=== PATIENT | male | born 1990 | race Caucasian/White ===

== ENCOUNTER → 2024-08-18 | Outpatient (CLI) | payer OTHER, SELFPAY ==
[2024-08-18 12:21] LABS: Absolute Lymphocyte Count 1.77 X10^3/uL (0.83-4.51); Absolute Neutrophil Count 4.7 X10^3/uL (2.0-7.7); Basophil# 0.06 X10^3/uL; Basophil% 0.8 % (0-1); Eosinophil# 0.27 X10^3/uL; Eosinophils% 3.7 % (0-5); Hematocrit 44.8 % (40-54); Hemoglobin 15.5 g/dL (13.0-16.5); Lymphocyte # 1.77 X10^3/ul (0.83-4.51); Lymphocyte % 24.2 % (19-41); Mean Corp Hgb Conc 34.6 g/dL (32-36); Mean Corpuscular Hgb 29.2 pg (27.0-32.0); Mean Corpuscular Volume 84.5 fL (80-94); Mean Platelet Vol. 9.6 fl (6.2-12.0); Monocyte# 0.52 X10^3/uL; Monocyte% 7.1 % (0-10); NRBC Flagged by Analyzer 0 % (0-5); Neutrophil # 4.66 X10^3/uL (2.7-7.7); Neutrophil % 63.7 % (47-70); Platelet Count 218 K/mm3 (150-450); RBC Distribution Width CV 13.2 % (11.6-14.6); RBC Distribution Width SD 40.7 fl (35.1-43.9); White Blood Count 7.3 K/mm3 (4.4-11.0)
[2024-08-18 12:42] LABS: ALB/GLOB Ratio 1.6 RATIO (0.9-2.4); AST(SGOT) 18 U/L (<=37); Alanine Aminotransfer ALT/SGPT 26 U/L (<=46); Albumin, Serum 4.1 g/dL (3.5-5.0); Alkaline Phosphatase 121 U/L (40-129); Anion Gap 11 (5-15); BUN 13 mg/dL (4-19); BUN/Creat Ratio 12.5 RATIO (10-20); Calcium,Total 9.3 mg/dL (7.6-11.0); Carbon Dioxide 23.5 mmol/L (21.0-32.0); Chloride 104 mmol/L (98-108); Cholesterol 219 mg/dL (<=200); Creatinine, Serum 1.03 mg/dL (0.70-1.20); EST Glomerular Filtration Rate 97 (>60); Globulin 2.6 g/dL (2.2-4.2); Glucose 104 mg/dL (70-99); High Density Lipoprotein 33 mg/dL; Low Density Lipoprotein Calc. 139 mg/dL; Potassium 4.1 mmol/L (3.3-5.1); Protein, Total 6.8 g/dL (5.9-8.4); Sodium Level 138 mmol/L (133-145); Total Bilirubin 0.68 mg/dL (0.00-1.30); Triglycerides 236 mg/dL; Very Low Density Lipoprotein 47 mg/dL (5-40); cholesterol:hdl ratio screen 6.62
[2024-08-18 12:46] LABS: Hemoglobin A1c 5.8 % (<=5.6)
== END | disposition home or self-care (01) ==
PROVIDERS: PCP Family Medicine
DX: Z00.00 Encounter for general adult medical examination without abnormal findings (principal)
CPT/HCPCS: 36415; 80053; 80061; 83036; 85025

== ENCOUNTER → 2024-11-12 | Outpatient (CLI) | payer OTHER, SELFPAY ==
--- NOTE | 2024-11-12 12:50 | ECHOD_ITS ---
Reason For Study Reason For Study: Obstructive Sleep Apnea Procedure This was a 2D Doppler, Color Flow transthoracic echocardiogram. RV Strain analysis performed. Exam performed in department. Left Ventricle Normal LV size. Left ventricular systolic function is normal. The left ventricular ejection fraction is 60 %. No regional wall motion abnormalities noted. Right Ventricle Normal right ventricle. TAPSE is 1.4 cm. Mild global right ventricular systolic dysfunction. Atria Normal left atrium. Normal right atrium. Mitral Valve Normal mitral valve. Tricuspid Valve Normal tricuspid valve. Mild (1+) tricuspid valve insufficiency. Pulmonary artery systolic pressure is 22 mmHg. Aortic Valve Trisinus/trileaflet aortic valve. Pulmonic Valve Normal pulmonic valve. Great Vessels Normal aortic root. The pulmonary artery is normal size. Inferior vena cava collapse with respiration. Pericardium/Pleural No pericardial effusion. MMode/2D Measurements & Calculations LVIDd: 4.5 cm IVSd: 0.97 cm Ao root diam: 3.0 cm LVIDs: 2.8 cm LVPWd: 0.81 cm RVDd: 3.6 cm FS: 38.7 % LAV(MOD-bp): 32.6 ml LVAd ap4: 24.1 cm2 SV(MOD-sp4): 43.5 ml LAV(MOD-bp) Indexed: 15.5 ml/m2 LVLd ap4: 7.4 cm SI(MOD-sp4): 20.7 ml/m2 LAV(MOD-sp2): 28.1 ml EDV(MOD-sp4): 66.2 ml LAV(MOD-sp4): 31.2 ml EDV(sp4-el): 67.1 ml LVAs ap4: 12.2 cm2 LVLs ap4: 6.0 cm ESV(MOD-sp4): 22.7 ml ESV(sp4-el): 21.2 ml EF(MOD-sp4): 65.7 % EF(sp4-el): 68.4 % SV(sp4-el): 45.9 ml LA A4 area: 13.6 cm2 LA dimension(2D): 3.6 cm RA A4 area: 12.7 cm2 Time Measurements MV dec time: 0.19 sec Doppler Measurements & Calculations MV E max candido: 98.2 cm/sec Lat Peak E' Candido: 18.9 cm/sec Med Peak E' Candido: 14.1 cm/sec MV A max candido: 51.7 cm/sec E/E' lat: 5.2 E/E' med: 7.0 MV E/A: 1.9 MV V2 max: 111.1 cm/sec MV P1/2t max candido: 115.4 cm/sec Ao V2 max: 145.7 cm/sec MV max P.9 mmHg MV P1/2t: 67.3 msec Ao max P.5 mmHg MV V2 mean: 53.4 cm/sec Ao V2 mean: 101.4 cm/sec MV mean P.4 mmHg MV dec slope: 502.0 cm/sec2 Ao mean P.7 mmHg MV V2 VTI: 34.3 cm MVA(P1/2t): 3.3 cm2 Ao V2 VTI: 31.3 cm AV (velocity ratio): 0.86 LV V1 max: 127.3 cm/sec PA V2 max: 125.7 cm/sec TR max candido: 219.9 cm/sec LV V1 max P.5 mmHg PA V2 mean: 84.3 cm/sec TR max P.3 mmHg LV V1 mean P.7 mmHg LV V1 mean: 90.2 cm/sec LV V1 VTI: 27.1 cm ECHO/Echo Complete Interpretation Summary Normal LV size. Left ventricular systolic function is normal. The left ventricular ejection fraction is 60 %. Normal right ventricle. Mild global right ventricular systolic dysfunction. TAPSE is 1.4 cm. Mild (1+) tricuspid valve insufficiency. Pulmonary artery systolic pressure is 22 mmHg. Ordering Physician: Marvin Cool V Referring Physician: Marvin Cool V Performed By: [facility]
== END | disposition home or self-care (01) ==
LOC: CVS 12:46
PROVIDERS: PCP Family Medicine; Referring Provider Internal Medicine Pulmonary Disease; Visit Provider Internal Medicine Pulmonary Disease
DX: G47.33 Obstructive sleep apnea (adult) (pediatric) (principal)
CPT/HCPCS: 93306